=== PATIENT | male | born 1945 | race Caucasian/White ===

== ENCOUNTER → 2022-03-22 01:46 | Outpatient (CLI) | payer MEDICARE, MEDICAID, SELFPAY ==
--- NOTE | 2022-03-22 10:30 | DI.US_ITS ---
APPROVED REPORT EXAM: Comprehensive 2D, Doppler, and color-flow Echocardiogram Patient Location: Out-Patient Manager Media: Leesa Lopez RDCS (AE) Indications: Cardiac arrhythmias Other Information Study Quality: Adequate Conclusion Normal left ventricular wall thickness and chamber size. Estimated ejection fraction is 30 to 35%. No segmental wall motion abnormalities are seen; there is global hypokinesis Right ventricle appears normal in size and systolic function Both atria are normal in size The aortic valve is sclerotic without stenosis or regurgitation Mildly thickened mitral leaflets. Mitral annular calcification. Mild to moderate eccentric mitral r egurgitation Normal tricuspid valve with trace regurgitation. Right ventricular systolic pressure could not be es timated Wall motion Left Ventricle The left ventricle is normal size. Left ventricular systolic function is moderately decreased. There is normal left ventricular wall thickness. There is global hypokinesis of the left ventricle. There i s no ventricular septal defect visualized. LVEF is 30-35%. Right Ventricle The right ventricle is normal size. Right ventricular systolic function is grossly normal. Atria The left atrium size is normal. The right atrium size is normal. The right atrium size is normal. Aortic Valve The Aortic valve is sclerotic. Aortic valve is probably trileaflet. There is no aortic valvular steno sis. No aortic regurgitation is present. Mitral Valve There is mitral annular calcification. Mitral valve leaflets are mildly thickened. No evidence of no ral valve stenosis. Mild to moderate mitral regurgitation. Mitral regurgitation jet is eccentrically directed. Tricuspid Valve The tricuspid valve is normal in structure. There is no tricuspid valve stenosis. Trace tricuspid reg urgitation. Unable to assess PA pressure. Pulmonic Valve The pulmonary valve is normal in structure. There is no pulmonic valvular stenosis. There is no pulmo yohana valvular regurgitation. Great Vessels The aortic root is normal in size. The ascending aorta is normal in size. IVC is normal in size and c ollapses >50% with inspiration. Pericardium There is no pericardial effusion. 2D Dimensions IVSD d PLAX 0.78 cm M: 0.6-1.2 LV Vol A2C d MOD 117.8 mL LVPW d PLAX 0.77 cm M: 0.6 - 1.2 LV Vol A4C d MOD 108.5 mL LVID d PLAX 5.44 cm M: 4.2 - 5.8 LA vol/ BSA A2C s A-L 51.2 mL/m2 LVDs 4.50 cm M: 2.5 - 4.0 LA vol/ BSA A4C s A-L 31.1 mL/m2 Ao Root d 2.97 cm M: 3.1 - 3.7 LA Vol/ BSA Biplane s A-L 40.4 mL/m2 RA Area A4C 10.35 cm2 LA Area A4C s MOD 18.53 cm2 RA Vol/ BSA A4C s A-L 13.2 mL/m2 LA Area A2C s MOD 24.08 cm2 Ao Asc Diam d 3.08 cm M: 2.6 - 3.4 LV EF A4C MOD 30.3 % LV EF Teichholz 34.2 % LV EF A2C MOD 30.5 % LVEF (Sawyer's) 30.47 % M: 52 - 72 LV EF Biplane MOD 30.5 % LV Volume 90.58 mL M: 62 - 150 SV 34.91 mL LV Volume Index 52.66 mL/m2 M: 34 - 74 SV Index 20.29 mL/m2 LV Vol Biplane MOD 114.6 mL FS 16.45 % M-Mode TAPSE 1.62 cm (M/F) >1.7 LV Diastology MV E' medial 0.043 (>0.07 m/s) E/A Ratio 0.8 LV E/e MED 20.95 (<14) MV E Vmax 0.91 (0.4-1.3 m/s) MV E' lateral 0.064 (>0.1 m/s) MV A Vmax 1.10 (0.4-1.3 m/s) LV E/e LAT 14.25 (<14) MV E/A Ratio 0.82 MV E/E' medial 20.98 MV E/E' lateral 14.26 Aortic Valve LVOT Area 3.45 cm2 AoV Area Vmax 1.78 cm2 LVOT Vmax 0.79 m/s AoV Area/ BSA (Vmax) 1.04 cm2/m2 LVOT Mean Johnny. 0.53 m/s SAMARIA Mean Johnny. 1.92 cm2 LVOT Peak Grad 2.5 mmHg SAMARIA Mean Johnny. Index 1.12 cm2/m2 LVOT Mean Grad 1.3 mmHg LVOT VTI 0.182 m LVOT Diam s 2.05 cm AoV Vmax 1.52 m/s Velocity Ratio 0.51 AoV Mean Johnny. 0.95 m/s AoV Peak Grad 9.2 mmHg LVOT SV 62.75 mL AoV Mean Grad 4.3 mmHg AoV VTI 0.281 m AoV Area VTI 2.23 cm2 AoV Area/ BSA (VTI) 1.30 cm/m2 Mitral Valve MV DT 246 (160-240 msec) MR Vmax 5.70 m/s MV PHT 71 msec MR VTI 2.285 m MV Area PHT 3.08 cm2 MR Peak Grad 129.8 mmHg MV VTI 0.353 m MR Mean Grad 85.6 mmHg MV Area VTI 1.78 (4.0-6.0 cm2) Pulmonary Valve PV Vmax 0.88 (0.5-1.5 m/s) RVOT Peak Gr. 0.53 mmHg PV Peak Grad 3.1 mmHg RVOT Mean Gr. 0.35 mmHg PV Mean Grad 2.2 mmHg RVOT VTI 0.091 m PV VTI 0.178 m RVOT Vmax 0.36 m/s
== END ==
PROVIDERS: PCP Family Medicine; Visit Provider Family Medicine
DX: I49.9 Cardiac arrhythmia, unspecified (principal)
CPT/HCPCS: 93306

== ENCOUNTER 2022-04-17 08:18 | Outpatient (CLI) | payer MEDICARE, MEDICAID, SELFPAY ==
--- NOTE | 2022-04-17 08:15 | RT.EKG_ITS ---
APPROVED REPORT Exam: Resting ECG Reason for Exam: CAD Patient Location: O HR:77 bpm ECG Measurements Heart Rate 77 AXIS MT 176 P 83 QRSd 140 QRS 16 QT 380 T 96 QTc 431 Conclusion Sinus rhythm...normal P axis, V-rate 50- 99 Probable left atrial enlargement...P >50mS, <-0.10mV V1 LVH with secondary repolarization abnormality...multi-LVH criteria, abnrm ST-T Inferior infarct, old...Q >35mS, II III aVF
== END 2022-04-17 08:19 | disposition home or self-care (01) ==
LOC: DI.CARD 08:19
PROVIDERS: PCP Family Medicine; Visit Provider Internal Medicine Cardiovascular Disease
DX: I25.10 Atherosclerotic heart disease of native coronary artery without angina pectoris (principal); R94.31 Abnormal electrocardiogram [ECG] [EKG]; I25.2 Old myocardial infarction
CPT/HCPCS: 93010

== ENCOUNTER → 2022-04-17 12:47 | Outpatient (BNVA) | payer MEDICARE, MEDICAID, SELFPAY | PROVIDERS: PCP Family Medicine; Referring Provider Family Medicine; Visit Provider Internal Medicine Cardiovascular Disease | DX: I25.2 Old myocardial infarction (principal); R06.02 Shortness of breath; Z99.81 Dependence on supplemental oxygen; R63.4 Abnormal weight loss; N18.9 Chronic kidney disease, unspecified; Z87.891 Personal history of nicotine dependence; I25.10 Atherosclerotic heart disease of native coronary artery without angina pectoris; I25.5 Ischemic cardiomyopathy; J44.9 Chronic obstructive pulmonary disease, unspecified; R22.1 Localized swelling, mass and lump, neck | CPT/HCPCS: 93005; 99202; 99203 ==